=== PATIENT | male | born 1970 | race Two or more races ===

== ENCOUNTER 2019-06-22 18:26 | Inpatient (IN) | payer OTHER ==
[~2019-06-22] VITALS: Ht 162.6 cm; Wt 83.9 kg
--- NOTE | 2019-06-22 18:32 | NUR ---
"BIBA RA 88 from longterm escorted by [employer] officer Mina [id number] "was nervous hyperventilating/started clutching chest. EKG [facility] NSR"" PT AAOX4, -SOB, NAD NOTED, VSS, PENDING MD ARTEAGA
[2019-06-22 19:21] LABS: CREATININE 1.1 mg/dL (0.6-1.3); POTASSIUM 3.6 mmol/L (3.5-5.1)
[2019-06-22 19:25] LABS: CALCIUM, SERUM 9.7 mg/dL (8.5-10.1)
[2019-06-22 19:35] LABS: BASOPHILS % (AUTO) 0.4 % (0.0-2.0); EOSINOPHILS % (AUTO) 1.1 % (0.0-6.0); HEMATOCRIT 47 % (39-51); HEMOGLOBIN 16.3 g/dL (13.5-17.5); MEAN CORPUSCULAR HGB CONC 35 g/dl (31.0-36.0); MEAN CORPUSCULAR VOLUME 93 fL (80-96); MONOCYTES # (AUTO) 0.4 /CMM (0.1-1.30); MONOCYTES % (AUTO) 5.6 % (2.0-12.0); NEUTROPHILS # (AUTO) 4.6 /CMM (1.8-8.9); NEUTROPHILS % (AUTO) 64.9 % (43.0-81.0); PLATELET COUNT (AUTO) 155 /CMM (150-450); RED BLOOD CELL COUNT(AUTO) 5.08 MIL/uL (4.5-6.0)
[2019-06-22] MEDS ORDERED: ASPIRIN 325 MG TABLET ONE (19:53)
[2019-06-22] MEDS ORDERED: ASPIRIN 325 MG TABLET PO ONE (20:00)
--- NOTE | 2019-06-22 20:19 | NUR ---
CALLED FOR TELE BED, TURNED IN MOVE SHEET
--- NOTE | 2019-06-22 20:31 | NUR ---
PAGED DR VILLALOBOS (CARDIO), HE SPOKE TO DR DIXON
[2019-06-22] MEDS ORDERED: ENOXAPARIN SODIUM 80 MG/0.8 ML DISP.SYRIN SQ ONE ×2 (21:00→21:01)
--- NOTE | 2019-06-22 21:00 | NUR ---
REPORT GIVEN TO SERGIO SCHWARTZ FOR JOSE PT WILL BE TRANSPORTED TO [facility] VIA ACLS PROTOCOL
--- NOTE | 2019-06-22 21:25 | NUR ---
PT ARRIVED FROM ED. ALERT AND ORIENTED TIMES FOUR. CAME FROM [facility] FOR COMPLAINTS OF CHEST PAIN. AMBULATORY AND KYRGYZ SPEAKING. UNDERSTANDING SOME TELUGU. [facility] PT ON [employer] RUNNING ON THE [facility] 50'S. STATES HE HAS A HISTORY OF DIABETES, HTN AND HAS BEEN HOSPITALIZED TWICE FOR CHEST PAIN. PT IS CURRENTLY IN NO ACUTE DISTRESS OR PAIN. ROOM AIR SATTING WELL. VITALS STABLE. TWO POLICE AT BEDSIDE PER PROTOCOL. ELEVATED TROPONIN LEVEL OF O.O Addendum: 06/22/19 at 2240 by EFREN POP RN TOP OF [phone]. WILL CONTINUE TO MONITER AND CARRY OUT PLAN OF CARE. ALL SAFETY PRECATIONS IN PLACE.
[2019-06-22 21:49] VITALS: BP 158/91
[2019-06-22] MEDS ORDERED: MAGNESIUM HYDROXIDE 30 ML UDC PO PRN (22:00)
[2019-06-22] MEDS ORDERED: ACETAMINOPHEN 325 MG TABLET PO PRN (22:00)
[2019-06-22] MEDS ORDERED: ZOLPIDEM TARTRATE 5 MG TABLET PO PRN (22:00)
[2019-06-22] MEDS ORDERED: ONDANSETRON HCL/PF 4 MG/2 ML VIAL IVP PRN (22:00)
[2019-06-22] MEDS ORDERED: HYDROCODONE/APAP 5/325MG 1 EACH TABLET PO PRN (22:00)
[2019-06-22] MEDS ORDERED: MAG HYDROX/AL HYDROX/SIMETH 30 ML UDC PO PRN (22:00)
[2019-06-22] MEDS ORDERED: Z GUARD REMEDY 2 OZ OINT TP PRN (22:00)
--- NOTE | 2019-06-22 22:30 | NUR ---
DR MICHEL AT BEDSIDE. ASSESED PATIENT AND ASKED ABOUT HOME MEDICATIONS. SAID THAT THE ER IS WORKING ON GETTING HIS HOME MEDICATIONS AND FOR THE NIGHT NO MEDS ARE NEEDED. CLARIFIED ORDER TO PUT IN LISINOPRIL FOR HIGH BP AND NITRO PRN FOR CHEST SIFUENTES IF IT OCCURS
[2019-06-22] MEDS ORDERED: NITROGLYCERIN 0.4 MG/TAB BOTTLE SL PRN (23:00)
--- NOTE | 2019-06-22 23:10 | NUR ---
RETRIEVED PHONE NUMBERS FROM PATIENT TO CONTACT FAMILY TO GET HOME MEDICATIONS BROUGHT OVER. PATIENT STATES HE TAKES FIVE BUT ONLY REMEMBERS TWO OF THEM, LISINOPRIL AND METFORMIN. LAST BS READING WAS 210. PT STATES PARKER ONLY SPEAKS NIGERIAN BUT WILL BE ABLE TO RETRIVE THE MEDS AND GIVE THE NAMES AND DOSING AMOUNT. HER NUMBER IS [phone]. THE BROTHERS NUMBER IS [phone] WILL ENDORSE TO AM SHIFT TO COMMUNICATE WITH DOCTOR ABOUT GETTING MEDS FOR NOW FOR HIS BLOOD SUGAR.
[2019-06-23 05:49] VITALS: BP 143/85
--- NOTE | 2019-06-23 06:58 | NUR ---
PT IN BED COMFORTABLE. TWO POLICE STILL AT BEDSIDE, PT IN HANDCUFFED TO THE BED. ALERT AND ORIENTED TIMES FOUR. YI SPEAKING, UNDERSTANDING LITTLE AZERBAIJANI. NEEDS HEMODIALYSIS CHARGE NURSE. NO COMPLAINTS OF CHEST PAIN, SOB AND NO SIGN OF ANY ACUTE DISTRESS. LEFT AC GAUGE 20 IN TACT FLUSHING WELL. SL. PT ON TELE BOX SINUS RYTHM- LOWEST HR WAS 43. RUNNING ON THE [place] ALL NIGHT DURING SHIFT. STATES HE HAS A ROOM AIR SATTING WELL. VITALS STABLE. LABS JUST DRAWN INCLUDING TROP LEVEL. IN NEED OF HIS HOME MEDICATION. WILL ENDORSE TO AM NURSE TO CARRY OUT PLAN OF CARE. ALL SAFETY PRECAUTIONS IN PLACE, CALLL LIGHT WITHIN REACH. LAST BP WAS 131/77.
[2019-06-23 07:04] LABS: BASOPHILS % (AUTO) 0.5 % (0.0-2.0); HEMATOCRIT 48 % (39-51); HEMOGLOBIN 16.7 g/dL (13.5-17.5); LYMPHOCYTES % (AUTO) 28.8 % (20.0-44.0); MEAN CORPUSCULAR HGB CONC 35 g/dl (31.0-36.0); MEAN CORPUSCULAR VOLUME 93 fL (80-96); MONOCYTES # (AUTO) 0.4 /CMM (0.1-1.30); MONOCYTES % (AUTO) 6.2 % (2.0-12.0); NEUTROPHILS # (AUTO) 4.4 /CMM (1.8-8.9); NEUTROPHILS % (AUTO) 63.5 % (43.0-81.0); PLATELET COUNT (AUTO) 151 /CMM (150-450); RED BLOOD CELL COUNT(AUTO) 5.13 MIL/uL (4.5-6.0)
[2019-06-23 07:05] LABS: CALCIUM, SERUM 8.7 mg/dL (8.5-10.1); MAGNESIUM 1.6 mg/dL (1.8-2.4); POTASSIUM 3.6 mmol/L (3.5-5.1)
[2019-06-23] MEDS ORDERED: METF500T7 PO (08:27)
[2019-06-23] MEDS ORDERED: ATOR40TA PO (08:27)
[2019-06-23] MEDS ORDERED: CARV12.52 PO (08:27)
[2019-06-23] MEDS ORDERED: FURO-144 PO (08:27)
[2019-06-23] MEDS ORDERED: BENA20TA9 PO (08:27)
[2019-06-23] MEDS ORDERED: LISINOPRIL (10MG) 10 MG TABLET PO SCH (09:00)
[2019-06-23] MEDS ORDERED: CARVEDILOL 12.5 MG TABLET PO SCH (09:30)
[2019-06-23] MEDS ORDERED: METFORMIN XR 500 MG TAB.SR.24H PO SCH (09:30)
[2019-06-23] MEDS ORDERED: FUROSEMIDE 40 MG TABLET PO SCH (09:30)
[2019-06-23] MEDS ORDERED: BENAZEPRIL HCL 20 MG TABLET PO SCH (09:30)
[2019-06-23] MEDS ORDERED: CT SWABBABLE VALVE TRANS SET 1 EA INFUS.SET MC ONE (10:14)
[2019-06-23] MEDS ORDERED: IOHEXOL-350 100 ML VIAL IV ONE (10:14)
[2019-06-23] MEDS ORDERED: IV NS 0.9% 250 ML IV ONE (10:14)
--- NOTE | 2019-06-23 10:31 | NUR ---
RN NOTES REPORT TAKEN FROM RAFAEL HILL FOR CONTINUITY OF CARE , PT OFF THE FLOOR FOR CTA AT THIS TIME .
--- NOTE | 2019-06-23 10:50 | NUR ---
SERGIO FONSECA NOTE PT AWAKE AND ALERT, URUGUAYAN SPEAKING, SHOWING NO SIGNS OF DISTRESS DENIES ANY CHEST PAIN. ON RA WITH GOOD O2 SATURATION. PT TRANSPORTED TO CT FOR CTA. PT'S CARE ENDORSED TO SERGIO PAN FOR CONTINUITY OF CARE. BED IN LOW AND LOCKED POSITION, CALL LIGHT WITHIN REACH, HEAD OF BED ELEVATED. PT'S , PARKER, CALLED EARLIER REQUESTING MEDICATION LIST WHICH WAS UPDATED ON THE CHARTING SYSTEM. PT EDUCATED REGARDING THE USE OF HIS MEDICATIONS AND THE PURPOSE OF THEM. PT ACKNOWLEDGED INFORMATION.
--- NOTE | 2019-06-23 11:55 | NUR ---
RN NOTES RECEIVED PT ON BED, A/OX4, ON RA, WILBER ANY CHEST PAIN, VSS STABLE, L AC IV SITE G 20 CLEAN, DRY AND INTACT, SR UP x3, CALL LIGHT WITHIN EASY REACH, BED LOCKED AND IN LOWEST POSITION, CONTINUE TO MONITOR .
[2019-06-23 12:02] VITALS: BP 132/87
[2019-06-23] MEDS: Magnesium 1GM/D5W 100ML PREMIX 100 ML IV SCH ×2 (12:09→13:06)
--- NOTE | 2019-06-23 13:30 | NUR ---
RN NOTES DISCHARGE INSTRUCTION GIVEN TO PT , VERBALIZES UNDERSTANDING , VSS STABLE.
--- NOTE | 2019-06-23 14:20 | NUR ---
RN NOTES TWO IV SITES D/JANIYA , PT LEFT THE FLOOR TO MAIN ENTRANCE ACCOMPANIED BY POLICE OFFICERS , IN STABLE CONDITION.
--- NOTE | 2019-06-23 14:20 | NUR ---
RN NOTES PT DISCHARGED TO GROUP HOME .
[2019-06-23 14:27] VITALS: BP 135/86
[2019-06-23] MEDS ORDERED: ATORVASTATIN 40 MG TABLET PO SCH (18:00)
== END 2019-06-23 14:25 | DRG 303 ==
LOC: ER 18:26 → TELE1 21:11 → MEDSG1 06-23 10:29
PROVIDERS: ADMIT Family Medicine; ATTEND Nurse Practitioner Acute Care
DX: I25.10 Atherosclerotic heart disease of native coronary artery without angina pectoris (principal); E11.65 Type 2 diabetes mellitus with hyperglycemia; E66.9 Obesity, unspecified; I10 Essential (primary) hypertension; Z68.31 Body mass index [BMI] 31.0-31.9, adult; Z79.84 Long term (current) use of oral hypoglycemic drugs
CPT/HCPCS: 36415; 71045-TC; 75574; 80048-TC; 80061-TC; 82962-TC; 83735-TC; 84100-TC; 84484-TC; 85025-TC; 85730-TC; 87081-TC; G0378; J1650; J3475; J7050; Q9967